=== PATIENT | female | born 1995 | race Caucasian/White ===

== ENCOUNTER 2016-06-03 11:30 | Emergency (ER) | payer OTHER ==
--- NOTE | 2016-06-03 11:36 | EDPHY ---
H & P Time Seen by Provider: 06/03/16 11:36 HPI/ROS: CHIEF COMPLAINT: Vomiting and diarrhea HISTORY OF PRESENT ILLNESS: 20-year-old woman ate at a restaurant yesterday for lunch and dinner. She felt well until 715 this morning when she awakened with abdominal cramping followed by vomiting and multiple episodes of diarrhea. Symptoms are severe and worse with any oral intake. Not associated with hematemesis or coffee-ground emesis or melena. No recent known sick contacts and no foreign travel. REVIEW OF SYSTEMS: Eye: no change in vision ENT: no sore throat Cardiac: no chest pain or syncope Pulmonary: no cough or SOB Abdomen: HPI Musculoskeletal: no back pain Skin: no rash Neuro: no headache Constitutional: no fever : no urinary symptoms A comprehensive 10 point review of systems is otherwise negative aside from elements mentioned in the history of present illness. PAST MEDICAL HISTORY: Negative Social history: No recent alcohol General Appearance: Alert and conversant, cooperative. Eyes: No scleral icterus. ENT, Mouth: Normal mucous membranes. Respiratory: Normal respiratory effort, breath sounds equal, lungs are clear to auscultation. Cardiovascular: Regular rate and rhythm. Gastrointestinal: Abdomen is soft and non tender. Nontender over McBurney's point. Neurological: Alert and oriented x3. Normally conversant. Face symmetric, normal movement and sensation in all extremities. Skin: Warm and dry, no rashes. Musculoskeletal: No peripheral edema and no joint swelling. Psychiatric: Not agitated. Emergency Department course/MDM: IV normal saline 2 L and Zofran 4 mg IV for nausea vomiting and dehydration. Likely food related or viral gastroenteritis. Does not have acute surgical abdominal process on exam. 1315: Feels better, abdomen soft and nontender, taking oral fluids, stable for discharge. Not . Smoking Status: Never smoked Constitutional: Initial Vital Signs Temperature (C) 36.5 C 06/03/16 11:32 Heart Rate 88 06/03/16 11:32 Respiratory Rate 16 06/03/16 11:32 Blood Pressure 116/77 06/03/16 11:32 O2 Sat (%) 96 06/03/16 11:32 O2 Delivery Mode Room Air Allergies/Adverse Reactions: No Known Allergies Allergy (Unverified 06/03/16 11:33) Home Medications: Medication Instructions Recorded NK [No Known Home Meds] 06/03/16 Medical Decision Making Differential Diagnosis: Differential considered including but not limited to viral gastroenteritis, food poisoning, GI bleed, appendicitis - Data Points Laboratory Results: 06/03/16 11:52 Beta HCG, Qual NEGATIVE Medications Given: Discontinued Medications Sodium Chloride (Ns) 1,000 mls @ 0 mls/hr IV ONCE ONE PRN Reason: Wide Open Stop: 06/03/16 11:44 Last Admin: 06/03/16 11:54 Dose: 1,000 mls Sodium Chloride (Ns) 1,000 mls @ 0 mls/hr IV ONCE ONE PRN Reason: Wide Open Stop: 06/03/16 11:44 Last Admin: 06/03/16 12:25 Dose: 1,000 mls Ondansetron HCl (Zofran) 4 mg IVP EDNOW ONE Stop: 06/03/16 11:44 Last Admin: 06/03/16 11:54 Dose: 4 mg Departure - Departure Disposition: Home, Routine, Self-Care Clinical Impression: Vomiting and diarrhea Condition: Good Instructions: Acute Nausea and Vomiting (ED) Referrals: [facility] [Provider Group] - As per Instructions
[2016-06-03] MEDS ORDERED: NS 1,000 ML IV ONE ×2 (11:43)
[2016-06-03] MEDS ORDERED: ONDANSETRON 4 MG/2 ML VIAL IVP ONE (11:43)
[2016-06-03] MEDS ORDERED: ONDANSETRON 4MG PREPACK#2 BTL TAKEHOME ONE (12:53)
[2016-06-03 13:08] VITALS: RESP 18; O2SAT 98
[2016-06-03 13:29] VITALS: BP 107/65; PULSE 63; TEMP 97.3
== END 2016-06-03 13:28 | disposition home or self-care (01) ==
DX: R11.10 Vomiting, unspecified (principal); R19.7 Diarrhea, unspecified
CPT/HCPCS: 96374; J2405